=== PATIENT | male | born 1995 | race Caucasian/White ===

== ENCOUNTER 2021-03-23 16:03 | Emergency (ER) | payer MEDICAID ==
[~2021-03-23] VITALS: Ht 177.8 cm; Wt 107.0 kg
[2021-03-23 18:50] LABS: BASOPHILS % 0.5 % (0.0-2.0); EOSINOPHILS % 3.6 % (0.0-5.0); HEMATOCRIT. 45.1 % (42.0-52.0); HEMOGLOBIN. 15.6 g/dL (14.0-18.0); LYMPHOCYTES % 28.2 % (20.0-50.0); MEAN CORPUSCULAR HEMOGLOBIN 31.9 pg (28.0-32.0); MEAN CORPUSCULAR VOLUME 92.3 fL (80.0-94.0); MEAN PLATELET VOLUME 9.4 fl (7.4-10.4); MONOCYTES % 6.7 % (2.0-8.0); PLATELET 208 x1000/uL (130-400); RED BLOOD CELL COUNT 4.89 mill/uL (4.7-6.1); RED CELL DISTRIBUTION WIDTH 13.2 % (11.6-14.6)
[2021-03-23 18:57] LABS: CHLORIDE 106 mEq/L (98-107)
[2021-03-23 18:58] LABS: PROTHROMBIN TIME 10.7 sec (9.6-11.0)
[2021-03-23 23:20] VITALS: BP 134/75
== END 2021-03-23 23:20 | disposition home or self-care (01) ==
LOC: ER 16:03
DX: K92.2 Gastrointestinal hemorrhage, unspecified (principal)
CPT/HCPCS: 36415; 80053; 85025; 86850; 86900; 99291